=== PATIENT | male | born 1965 | race Caucasian/White ===

== ENCOUNTER 2018-12-17 17:39 | Inpatient (IN) ==
--- NOTE | 2018-12-17 17:51 | Emergency Department Note ---
Disposition Clinical Impression: Renal artery stenosis, Hypertensive emergency Chest pain Qualifiers: Chest pain type: unspecified Qualified Code(s): R07.9 - Chest pain, unspecified Disposition: Admitted As Inpatient Condition: Good Time of Disposition: 21:00 Chest Pain HPI - General Chief Complaint: ED Chest Pain Stated Complaint: CP Time Seen by Provider: 12/17/18 17:49 Vital Signs Reviewed: Yes Nursing Notes Reviewed: Yes - History of Present Illness HPI Narrative: 53-year-old male presents emergency department with concern for acute onset of sharp chest pain that started prior to arrival. States that it does not radiate anywhere. Reports that he has history of stent placement. Reports that he has not been taking his blood pressure medications. His reason for not taking his blood pressure meds is that he has not wanted to eat anything. His mother reports that he has been a little depressed. Patient not actively sought homicidal or suicidal. Patient denies any shortness of breath. Denies any pain in his abdomen. Denies any fevers, chills, cough. Severity scale (1-10): 1 - Related Data Home Medications Medication Instructions Recorded Confirmed Aspirin [Lo-Dose Aspirin EC] 81 mg PO DAILY 09/18/16 06/17/18 Clopidogrel [Plavix] 75 mg PO DAILY 09/18/16 06/17/18 Losartan Potassium [Cozaar] 100 mg PO DAILY 09/18/16 06/17/18 Albuterol Sulfate [Ventolin Hfa] 18 gm IH Q6H PRN 06/17/18 06/17/18 Atorvastatin [Lipitor] 40 mg PO HS 06/17/18 06/17/18 DULoxetine [Cymbalta] 60 mg PO DAILY 06/17/18 06/17/18 Loratadine [Allergy Relief] 10 mg PO DAILY 06/17/18 06/17/18 Multivitamin/Iron/Folic Acid 1 each PO DAILY 06/17/18 06/17/18 [Centrum Complete Multivit Tab] Nitroglycerin [Nitrostat] 0.4 mg SL DAILY PRN 06/17/18 06/17/18 Omeprazole [PriLOSEC] 20 mg PO DAILY 06/17/18 06/17/18 Oxycodone HCl [Oxycontin] 10 mg PO QID 06/17/18 06/17/18 Trazodone HCl 100 mg PO HS 06/17/18 06/17/18 Allergies Allergy/AdvReac Type Severity Reaction Status Date / Time No Known Allergies Allergy Verified 09/18/16 08:14 All systems ED: reviewed and negative except as stated. Review of Systems: As Per HPI Constitutional: Denies: fever, chills Cardiovascular: Reports: chest pain. Denies: palpitations, dyspnea on exertion, syncope Respiratory: Denies: cough, dyspnea Gastrointestinal: Denies: abdominal pain, nausea, vomiting Genitourinary: Denies: urgency, dysuria Musculoskeletal: Denies: back pain Integumentary: Denies: rash Neurological: Denies: weakness, numbness, paresthesias Chest Pain PMH - Past Medical History Medical history: Reports: COPD Surgical history: Reports: angioplasty/stent Psychiatric history: Reports: anxiety - Social History Smoking Status: Current every day smoker Alcohol use: Reports: none Drug use: Reports: none Physical Exam - General Limitations: no limitations General appearance: alert, in no apparent distress - Head Head exam: normocephalic - Eye Eye exam: Present: EOMI - ENT ENT exam: mucous membranes moist - Neck Neck exam: Present: trachea midline - Chest Chest inspection: Present: symmetric chest wall rise - Respiratory Respiratory exam: Present: normal lung sounds bilaterally. Absent: respiratory distress, accessory muscle use - Cardiovascular Cardiovascular exam: Present: regular rate, normal rhythm, normal heart sounds - Abdominal Exam Abdominal exam: Present: soft, Non-Tender. Absent: distention, guarding, rebound, rigidity - Extremities Exam Extremities exam: Present: normal capillary refill - Back Exam Back exam: Present: full ROM - Neurological Exam Neurological exam: Present: alert, oriented X3, CN II-XII intact - Psychiatric Psychiatric exam: Present: normal affect, normal mood - Skin Skin exam: Present: warm, dry, intact, normal color. Absent: rash Course Vital Signs Temperature 98.1 F 12/17/18 17:42 Pulse Rate 111 12/17/18 17:42 Respiratory Rate 18 12/17/18 17:42 Blood Pressure 258/139 12/17/18 17:42 O2 Sat by Pulse Oximetry 98 12/17/18 17:42 Temperature 98.1 F 12/17/18 17:42 Pulse Rate 74 12/17/18 19:44 Respiratory Rate 16 12/17/18 21:07 Blood Pressure 207/120 12/17/18 21:07 O2 Sat by Pulse Oximetry 99 12/17/18 18:08 Oxygen Delivery Oxygen Delivery Room Air Chest Pain - MDM Narrative Medical decision making narrative: 53-year-old male presents emergency Department concern for sharp chest pain. Patient hypertensive initially. Obtained dissection study which did not reveal any acute dissection or aneurysm. Infrarenal abdominal aorta is. 50% stenosis with pain left common iliac arterial stent. Occlusion of left internal iliac artery as well as critical stenosis left renal artery with atrophy of the left kidney is likely chronic in nature. EKG did not reveal any ischemic changes. Troponin negative. Creatinine within normal baseline. Patient received 3 doses of nitroglycerin. This helped out with his chest pain significantly. He was also given 10 mg of IV labetalol. Blood pressure persisted to have systolic greater than 200 after these therapies. Patient most likely has continuous elevated blood pressure as he has not been taking his blood pressure medication. We have started IV nicardipine drip. Patient also given aspirin. Chest pain- free at time of admission. Chest X-Ray 12/17/18 17:52 IMPRESSION: Normal chest radiograph. D/ / Douglas Prater MD / Douglas Prater MD Interpreting Provider: Douglas Prater MD Dissection 12/17/18 18:08 IMPRESSION: No evident aortic dissection or aneurysm. Greater than 50% stenosis of the infrarenal abdominal aorta. Patent left common iliac arterial stent. 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 Critical stenosis proximally in the left renal artery. Severe atrophy of the left kidney. D/ / Reid Temple MD / Reid Temple MD Interpreting Provider: Reid Temple MD - Lab Data Result diagrams: 12/17/18 17:56 12/17/18 17:56 Lab Results 12/17/18 12/17/18 12/17/18 Range/Units 17:56 17:56 17:56 WBC 15.1 H (4.3-11.1) K/mcL RBC 4.31 (4.19-5.50) M/mcL Hgb 13.2 (12.9-16.9) g/dL Hct 39.4 (37.5-50.1) % MCV 91.4 (83.0-100.0) fL MCH 30.6 (28.0-33.3) pg MCHC 33.5 (31.6-35.5) g/dL RDW 13.2 (11.5-14.5) % Plt Count 395 (140-400) K/mcL MPV 9.9 (9.4-12.4) fL Immature Gran % 0.4 (0-4) % Seg Neutrophils % 67.0 % Lymphocytes % 25.5 % Monocytes % 5.9 % Eosinophils % 0.7 % Basophils % 0.5 % Neutrophils # 10.1 H (1.6-8.9) K/mcL Lymphocytes # 3.8 (0.6-4.6) K/mcL Monocytes # 0.9 (0.0-1.3) K/mcL Eosinophils # 0.1 (0.0-0.6) K/mcL Basophils # 0.1 (0.0-0.2) K/mcL Sodium 135 L (136-145) mEq/L Potassium 3.3 L (3.5-5.1) mEq/L Chloride 100 (98-107) mEq/L Carbon Dioxide 25 (23-29) mEq/L BUN 26 H (6-20) mg/dL Creatinine 1.59 H (0.70-1.30) mg/dL Est GFR ( Amer) 55 L (> 60) Est GFR (Non-Af Amer) 46 L (> 60) BUN/Creatinine Ratio 16 (6-26) Glucose 98 (70-105) mg/dL Calculated Osmolality 285 (280-300) Calcium 9.8 (8.6-10.3) mg/dL Troponin I 0.03 (< 0.04) ng/mL B-Natriuretic Peptide 88 (Less than 100) pg/mL - EKG Data EKG attestation: Yes I reviewed and interpreted this EKG. EKG results narrative: 17:49 Heart rate 94 bpm, MD 167 ms, QRS advent 80 ms, QT 378 ms, normal axis. Sinus rhythm with no ischemic ST changes. Heart Score - Score History: Moderately Suspicious EKG: Normal Age: 45-65 Risk Factors: Equal/Greater than 3 risk factor or history of atherosclerotic disease Troponin: Less than normal limit HEART Score Total: 4
[2018-12-17] MEDS ORDERED: Isovue-370 500 ML BOTTLE IVP ONE (18:08)
[2018-12-17] MEDS ORDERED: 0.9 % Sodium Chloride 1,000 ML IVC ONE (18:10)
[2018-12-17] MEDS ORDERED: Nitroglycerin 0.4 MG TAB.SUBL SL ONE (18:29)
[2018-12-17] MEDS: Nitroglycerin 0.4 MG TAB.SUBL SL PRN ×2 (18:36→19:42)
[2018-12-17 18:40] LABS: Basophils # 0.1 K/mcL (0.0-0.2); Basophils % 0.5 %; Eosinophils # 0.1 K/mcL (0.0-0.6); Eosinophils % 0.7 %; Hematocrit 39.4 % (37.5-50.1); Hemoglobin 13.2 g/dL (12.9-16.9); Immature Granulocytes % 0.4 % (0-4); Lymphocytes # 3.8 K/mcL (0.6-4.6); Lymphocytes % 25.5 %; Mean Corpuscular HGB Conc 33.5 g/dL (31.6-35.5); Mean Corpuscular Hemoglobin 30.6 pg (28.0-33.3); Mean Corpuscular Volume 91.4 fL (83.0-100.0); Mean Platelet Volume 9.9 fL (9.4-12.4); Monocytes # 0.9 K/mcL (0.0-1.3); Monocytes % 5.9 %; Neutrophils # 10.1 K/mcL (1.6-8.9); Platelet Count 395 K/mcL (140-400); Red Blood Count 4.31 M/mcL (4.19-5.50); Red Cell Distribution Width 13.2 % (11.5-14.5); White Blood Count 15.1 K/mcL (4.3-11.1)
[2018-12-17 18:57] LABS: Calcium 9.8 mg/dL (8.6-10.3); Potassium 3.3 mEq/L (3.5-5.1)
[2018-12-17 18:59] LABS: Troponin I 0.03 ng/mL (< 0.04)
[2018-12-17] MEDS ORDERED: *HR* Labetalol 20 MG/4 ML SYRINGE IVP ONE (19:59)
[2018-12-17] MEDS ORDERED: Aspirin 81 MG TAB.CHEW PO STA (20:11)
--- NOTE | 2018-12-17 21:12 | Emergency Department Note ---
Disposition Clinical Impression: Renal artery stenosis Disposition: Admitted As Inpatient Condition: Good Time of Disposition: 21:15 General Adult HPI - General Chief complaint: ED Chest Pain Stated complaint: CP Time Seen by Provider: 12/17/18 17:49 Source: patient Limitations: no limitations - History of Present Illness Pain Scale: 3 - Related Data Home Medications Medication Instructions Recorded Confirmed Aspirin [Lo-Dose Aspirin EC] 81 mg PO DAILY 09/18/16 06/17/18 Clopidogrel [Plavix] 75 mg PO DAILY 09/18/16 06/17/18 Losartan Potassium [Cozaar] 100 mg PO DAILY 09/18/16 06/17/18 Albuterol Sulfate [Ventolin Hfa] 18 gm IH Q6H PRN 06/17/18 06/17/18 Atorvastatin [Lipitor] 40 mg PO HS 06/17/18 06/17/18 DULoxetine [Cymbalta] 60 mg PO DAILY 06/17/18 06/17/18 Loratadine [Allergy Relief] 10 mg PO DAILY 06/17/18 06/17/18 Multivitamin/Iron/Folic Acid 1 each PO DAILY 06/17/18 06/17/18 [Centrum Complete Multivit Tab] Nitroglycerin [Nitrostat] 0.4 mg SL DAILY PRN 06/17/18 06/17/18 Omeprazole [PriLOSEC] 20 mg PO DAILY 06/17/18 06/17/18 Oxycodone HCl [Oxycontin] 10 mg PO QID 06/17/18 06/17/18 Trazodone HCl 100 mg PO HS 06/17/18 06/17/18 Allergies Allergy/AdvReac Type Severity Reaction Status Date / Time No Known Allergies Allergy Verified 09/18/16 08:14 Constitutional: Denies: fever, chills Cardiovascular: Reports: chest pain. Denies: palpitations, dyspnea on exertion, syncope Respiratory: Denies: cough, dyspnea Gastrointestinal: Denies: abdominal pain, nausea, vomiting Genitourinary: Denies: urgency, dysuria Musculoskeletal: Denies: back pain Integumentary: Denies: rash Neurological: Denies: weakness, numbness, paresthesias Past Medical History - Past Medical History Medical history: Reports: COPD Surgical history: Reports: angioplasty/stent Psychiatric history: Reports: anxiety, depression - Social History Smoking Status: Current every day smoker Smokeless Tobacco Status: No Alcohol use: Reports: none Drug use: Reports: none Physical Exam - General Limitations: no limitations General appearance: alert, in no apparent distress Course Vital Signs Temperature 98.1 F 12/17/18 17:42 Pulse Rate 111 12/17/18 17:42 Respiratory Rate 18 12/17/18 17:42 Blood Pressure 258/139 12/17/18 17:42 O2 Sat by Pulse Oximetry 98 12/17/18 17:42 Temperature 98.1 F 12/17/18 17:42 Pulse Rate 74 12/17/18 19:44 Respiratory Rate 16 12/17/18 21:07 Blood Pressure 207/120 12/17/18 21:07 O2 Sat by Pulse Oximetry 99 12/17/18 18:08 Oxygen Delivery Oxygen Delivery Room Air Medical Decision Making - Lab Data Result diagrams: 12/17/18 17:56 12/17/18 17:56 Lab Results 12/17/18 12/17/18 12/17/18 Range/Units 17:56 17:56 17:56 WBC 15.1 H (4.3-11.1) K/mcL RBC 4.31 (4.19-5.50) M/mcL Hgb 13.2 (12.9-16.9) g/dL Hct 39.4 (37.5-50.1) % MCV 91.4 (83.0-100.0) fL MCH 30.6 (28.0-33.3) pg MCHC 33.5 (31.6-35.5) g/dL RDW 13.2 (11.5-14.5) % Plt Count 395 (140-400) K/mcL MPV 9.9 (9.4-12.4) fL Immature Gran % 0.4 (0-4) % Seg Neutrophils % 67.0 % Lymphocytes % 25.5 % Monocytes % 5.9 % Eosinophils % 0.7 % Basophils % 0.5 % Neutrophils # 10.1 H (1.6-8.9) K/mcL Lymphocytes # 3.8 (0.6-4.6) K/mcL Monocytes # 0.9 (0.0-1.3) K/mcL Eosinophils # 0.1 (0.0-0.6) K/mcL Basophils # 0.1 (0.0-0.2) K/mcL Sodium 135 L (136-145) mEq/L Potassium 3.3 L (3.5-5.1) mEq/L Chloride 100 (98-107) mEq/L Carbon Dioxide 25 (23-29) mEq/L BUN 26 H (6-20) mg/dL Creatinine 1.59 H (0.70-1.30) mg/dL Est GFR ( Amer) 55 L (> 60) Est GFR (Non-Af Amer) 46 L (> 60) BUN/Creatinine Ratio 16 (6-26) Glucose 98 (70-105) mg/dL Calculated Osmolality 285 (280-300) Calcium 9.8 (8.6-10.3) mg/dL Troponin I 0.03 (< 0.04) ng/mL B-Natriuretic Peptide 88 (Less than 100) pg/mL Attestation Statement - Attestation Attestation: I reviewed the residents documentation and agree with the residents assessment and plan of care. I have personally had face to face time with the patient. 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 We will strat on nifepdeine and admit to ICU. AFter disucssing with Dr. Wolf who is a hospitalist here but has speciality training in interventional nephrology she would lalso recommend lasix therapy. WE will also formally consult nephrology service in addition to the professional courtesy consult per Dr. Wolf.
[2018-12-17] MEDS: niCARdipine 20 MG in 0.9 % Sodium Chloride 192 ML IVC SCH (21:53)
--- NOTE | 2018-12-17 22:02 | Internal Med History&Physical ---
<Jose E Yañez - Last Filed: 12/18/18 00:28> Date of Encounter: 12/18/18 Time of Encounter: 21:57 Internal Medicine - H&P: HPI Chief complaint: chest pain Admitted From: Emergency Dept Plans for Post Hospital Care: Home History of present illness: Mr. Lopez is a 53 year old male with history of psychiatric complaints, CAD, PAD, hypertension, right renal artery stenosis and left renal atrophy who pr esents to the hospital for severe chest pain and hypertension. He says that over the past month he has been having issues with chest pains and confusion which have been getting progressively worse. He says the chest pains are in the center of his chest and nonradiating. He does say that his pain is worsened by activity. It is relieved by rest. Overall they have been manageable, and he felt that maybe they were heartburn so he has been taking extra Prilosec, however they do not seem to be getting any better. Today they seem to be worse than they have been previously and he was no longer able to stand it. He says when he arrived hospital the pain was 10 over 10 in intensity. The pain was stabbing in nature and was associated with shortness of breath. He did not have any diaphoresis or palpitations associated with this. He also has no edema associated with this. He says that sometimes this pain is severe enough to wake him from sleep. He does have severe anxiety and depression that is associated with this. He also says that he has some confusion which is baseline, and is as sociated with some of psychiatric concerns. The patient does have a history of renovascular disease which is managed by nephrology, and he says that his blood pressure is been well controlled up until recently, however he has had episodes of high spikes in pressure. He says that when he arrived at the ED and was given medicine, his pain resolved relatively quickly. Significantly, while he did not mention it to me, the patient did tell his nurse that he has not been taking his medications for fear that they may have interactions. In the emergency department the patient had labs demonstrated WBC of 15.1, sodium 135, potassium 3.3, creatinine 1.59 which is at baseline, troponin 0.03. He had a chest x-ray which was relatively normal. A CT dissection study from chest to pelvis demonstrated greater than 50% stenosis of the infrarenal abdominal aorta have pain left common iliac artery stent. There is occlusion of the left internal iliac artery and a critical stenosis proximally in the left renal artery with severe atrophy of the left kidney. The patient originally received labetalol and was subsequently started on a Cardene drip which did drop the patient's blood pressure significantly. Nephrology was consulted in the ED. He will be admitted to the ICU as a 2N overflow patient for further workup and management of hypertensive urgency. Family history: Mother has CAD and diabetes. Past Med Surg Social Fam HX - Past Medical History Medical history: COPD Additional medical history: RDS in LLE. ulcers Psychiatric history: anxiety, depression - Past Surgical History Surgical History: angioplasty/stent Additional surgical history: LLE STENT - Social History Smoking Status: Current every day smoker Smokeless Tobacco Status: No Alcohol use: none Drug use: none Internal Medicine - H&P: Meds Aspirin [Lo-Dose Aspirin EC] 81 mg PO DAILY 09/18/16 [History] Clopidogrel [Plavix] 75 mg PO DAILY 09/18/16 [History] Losartan Potassium [Cozaar] 100 mg PO DAILY 09/18/16 [History] Albuterol Sulfate [Ventolin Hfa] 18 gm IH Q6H PRN 06/17/18 [History] Atorvastatin [Lipitor] 40 mg PO HS 06/17/18 [History] DULoxetine [Cymbalta] 60 mg PO DAILY 06/17/18 [History] Loratadine [Allergy Relief] 10 mg PO DAILY 06/17/18 [History] Multivitamin/Iron/Folic Acid [Centrum Complete Multivit Tab] 1 each PO DAILY 06/17/18 [History] Nitroglycerin [Nitrostat] 0.4 mg SL DAILY PRN 06/17/18 [History] Omeprazole [PriLOSEC] 20 mg PO DAILY 06/17/18 [History] Trazodone HCl 100 mg PO HS 06/17/18 [History] Oxycodone HCl [Roxybond] 10 mg PO Q6H PRN 12/17/18 [History] Allergy/AdvReac Type Severity Reaction Status Date / Time No Known Allergies Allergy Verified 09/18/16 08:14 All Systems PM: A 10-system review of systems was performed and is negative for pertinent findings except as documented above in the HPI. Review of systems: Constitutional: Denies fevers, chills, weight loss, generalized fatigue Head/Neck: Denies PATRICK, neck stiffness EENT: Denies vision changes/blurriness, rhinorrhea, congestion, sore throat CVS: Admits to chest pains, dyspnea on exertion. Pulm: Denies SOB, cough, sputum, hemoptysis, wheezing GI: Denies vomiting, diarrhea, constipation, melena, hematemasis. Admits to abdominal pain and nausea : Denies dysuria, increased frequency, urgency, hematuria Heme: Denies ease of bleeding or bruising MSK: Denies joint pain, limited ROM Skin: Denies rashes, ulcers, color changes Neuro: Denies PATRICK, paresthesias, focal deficits, ataxia - Constitutional Vitals: Temp Pulse Resp BP Pulse Ox 98.9 F 82 20 164/134 100 12/17/18 21:31 12/17/18 21:31 12/17/18 21:31 12/17/18 21:31 12/17/18 21:31 Exam: Gen: Vitals noted. No acute distress. Eyes: anicteric sclerae, moist conjunctivae; no lid-lag; Pupils equal and reactive to light HENT: Atraumatic; oropharynx clear with moist mucous membranes and no mucosal ulcerations; normal hard and soft palate Neck: Trachea midline; supple, no thyromegaly or lymphadenopathy Cardiac: RRR, no murmur, +S1/S2 Pulmonary: CTA bilaterally, no wheezes, rales or rhonchi, equal chest expansion Abdomen: soft, Tender with palpation, voluntary guarding present. No masses or hepatosplenomegaly MSK: ROM intact, no joint swelling noted Extremities: no BLE edema, tenderness in left lower extremity circumferentially, no cyanosis or clubbing Skin: Normal temperature, turgor and texture; no rash, ulcers or subcutaneous nodules Neuro: moves all extremities, no focal deficits. Psych: Anxious appearing. Speech pattern is broken and not always cold directed. A&Ox3 Internal Med - H&P Results - Labs CBC & Chem 7: 12/17/18 17:56 12/17/18 17:56 Labs: Short CBC 12/17/18 Range/Units 17:56 WBC 15.1 H (4.3-11.1) K/mcL Hgb 13.2 (12.9-16.9) g/dL Hct 39.4 (37.5-50.1) % Plt Count 395 (140-400) K/mcL Neutrophils # 10.1 H (1.6-8.9) K/mcL BMP 12/17/18 17:56 Sodium 135 L Potassium 3.3 L Chloride 100 Carbon Dioxide 25 BUN 26 H Creatinine 1.59 H Glucose 98 Calcium 9.8 Cardiac Enzymes 12/17/18 Range/Units 17:56 Troponin I 0.03 (< 0.04) ng/mL - Impressions ITS Impressions Chest X-Ray 12/17/18 17:52 IMPRESSION: Normal chest radiograph. D/ / Douglas Prater MD / Douglas Prater MD Interpreting Provider: Douglas Prater MD Dissection 12/17/18 18:08 IMPRESSION: No evident aortic dissection or aneurysm. Greater than 50% stenosis of the infrarenal abdominal aorta. Patent left common iliac arterial stent. 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 Critical stenosis proximally in the left renal artery. Severe atrophy of the left kidney. D/ / Reid Temple MD / Reid Temple MD Interpreting Provider: Reid Temple MD - Assessment and Plan (1) Hypertensive emergency Current Visit: Yes Status: Acute Assessment and plan: Hypertensive Emergency, BP 258 on arrival Patient does present with chest pain and evidence of confusion and headache Likely secondary to severe renovascular disease. Unclear is patient is compliant with home meds Received Labetalol IV in the ED and was placed on nicardipine drip We will continue the nicardipine drip at this time Goal BP 180/110 in first 24 hours (2) Confusion Current Visit: Yes Status: Acute Assessment and plan: Acute encephalopathy, suspect hypertensive encephalopathy vs RPLS The patient says that this has been getting progressively worse over the past month He does, apparently, have psychiatric history, however this is unlikely the source Also reports improvement since BP has started to come down some We will check a non-contrast CT of the head Will likely need MRI in the morning Consider neurology consult if there is no imrpovement (3) Chest pain Current Visit: Yes Status: Acute Assessment and plan: Chest pain, suspected secondary to HTN emergency Patient does have history of CAD and has PAD Will trend trop, continuous cardiac monitoring Repeat EKG in am Will get echo Qualifiers: Chest pain type: precordial pain Qualified Code(s): R07.2 - Precordial pain (4) Renal artery stenosis Current Visit: Yes Status: Acute Assessment and plan: Right renal artery stenosis CT dissection study demonstrates greater than 50% stenosis of the infrarenal abdominal aorta, patent left common iliac arterial stent, occlusion of the left internal iliac artery and critical stenosis proximally of the left renal artery. The patient does see nephrology in the outpatient setting Nephrology has been consulted from the emergency department (5) Peripheral arterial disease Current Visit: Yes Status: Acute Assessment and plan: Severe peripheral arterial disease requiring angioplasty in the past Patient does appear to be on aspirin and Plavix We will continue home medications when confirmed and BP under better control (6) CAD (coronary artery disease) Current Visit: Yes Status: Acute Assessment and plan: History of CAD s/p stent Currently no evidence of ischemia, trop negative Will continue cardiac monitoring Continue home meds when BP better controlled Qualifiers: Coronary Disease-Associated Artery/Lesion type: [place] artery [place] vs. transplanted heart: [place] heart Associated angina: with stable angina Qualified Code(s): I25.118 - Atherosclerotic heart disease of [place] coronary artery with other forms of angina pectoris (7) Renal atrophy, left Current Visit: Yes Status: Chronic Assessment and plan: chronic (8) CKD (chronic kidney disease) Current Visit: Yes Status: Chronic Assessment and plan: Chronic, appears stable Qualifiers: Chronic kidney disease stage: stage 3 (moderate) Qualified Code(s): N18.3 - Chronic kidney disease, stage 3 (moderate) (9) Depression with anxiety Current Visit: Yes Status: Acute Assessment and plan: Patient has depression with anxiety Apparently has been holding his meds at home He denies suicidal or homicidal ideations Will confirm meds, plan to restart in the morning if possible Social work consult - Time Spent With Patient Total time spent is greater than 50% in coordination of care (as documented) at patient's floor/unit and/or counseling patient: <Mil Choi - Last Filed: 12/18/18 02:29> Date of Encounter: 12/18/18 Time of Encounter: 01:05 - Constitutional Constitutional: no chills, no fever(s) - EENT Eyes: blurry vision, no diplopia Ears: no ear pain, no tinnitus Nose, mouth and throat: no nasal congestion, no sinus pressure, no sore throat - Cardiovascular Cardiovascular ROS IM: dyspnea on exertion, no chest pain, no dyspnea, no orthopnea, no paroxysmal nocturnal dyspnea - Respiratory Respiratory: no cough, no chest congestion, no excessive phlegm production - Gastrointestinal Gastrointestinal: no abdominal pain, no diarrhea, no hematemesis, no hematochezia, no melena, no vomiting - Genitourinary Genitourinary ROS male: no dysuria, no flank pain - Musculoskeletal Musculoskeletal ROS IM: no arthralgias, no back pain - Integumentary Integumentary IM: no rash, no jaundice - Neurological Neurological ROS: confusion, headache(s), no convulsions, no disequilibrium, no dizziness, no focal weakness, no frequent falls - Psychiatric Psychiatric: no anxiety, no depression - Endocrine Endocrine IM: no polyphagia, no polyuria - Allergic/Immunologic Allergic/Immunologic: no GI upset with certain foods - Constitutional Vitals: Temp Pulse Resp BP Pulse Ox 98.3 F 65 15 167/89 99 12/18/18 00:44 12/18/18 02:00 12/18/18 02:00 12/18/18 02:00 12/18/18 02:00 General appearance: Present: cooperative, A&O X 3, pleasant, answers questions appropriately - Head Head exam: Present: atraumatic, normal inspection - Eye Eye exam: Present: EOMI, PERRL. Absent: scleral icterus Pupils: Present: normal accommodation - ENT ENT exam: Present: mucous membranes dry, normal exam, normal oropharynx - Neck Neck exam general surgery: Present: full ROM, supple, trachea midline. Absent: tenderness, nuchal rigidity, thyromegaly - Respiratory Respiratory exam: Present: CTAB. Absent: rales, rhonchi, wheezes - Cardiovascular Cardiovascular exam: Present: RRR, +S1, +S2. Absent: diastolic murmur, systolic murmur - GI/Abdominal GI/Abdominal exam: Present: normal bowel sounds. Absent: guarding, hepatomegaly, mass, rebound, soft, splenomegaly, tenderness - Extremities Exam Extremities exam: Present: normal capillary refill, warm, radial pulses palpable and symmetrical. Absent: calf tenderness, pedal edema, tenderness - Back Exam Back exam: Absent: CVA tenderness (L), CVA tenderness (R) - Neurological Exam Neurological exam: Present: alert, CN II-XII intact, oriented X3, no focal deficits, strengths equal and symetr throughout. Absent: motor sensory deficit - Psychiatric Psychiatric exam: Present: normal affect, normal mood - Skin Skin exam: Present: dry, intact, warm Internal Med - H&P Results - Labs CBC & Chem 7: 12/17/18 17:56 12/17/18 17:56 Labs: Short CBC 12/17/18 Range/Units 17:56 WBC 15.1 H (4.3-11.1) K/mcL Hgb 13.2 (12.9-16.9) g/dL Hct 39.4 (37.5-50.1) % Plt Count 395 (140-400) K/mcL Neutrophils # 10.1 H (1.6-8.9) K/mcL BMP 12/17/18 17:56 Sodium 135 L Potassium 3.3 L Chloride 100 Carbon Dioxide 25 BUN 26 H Creatinine 1.59 H Glucose 98 Calcium 9.8 Cardiac Enzymes 12/17/18 12/17/18 Range/Units 17:56 22:45 Troponin I 0.03 0.03 (< 0.04) ng/mL - Impressions ITS Impressions Chest X-Ray 12/17/18 17:52 IMPRESSION: Normal chest radiograph. D/ / Douglas Prater MD / Douglas Prater MD Interpreting Provider: Douglas Prater MD Dissection 12/17/18 18:08 IMPRESSION: No evident aortic dissection or aneurysm. Greater than 50% stenosis of the infrarenal abdominal aorta. Patent left common iliac arterial stent. 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 Critical stenosis proximally in the left renal artery. Severe atrophy of the left kidney. D/ / Reid Temple MD / Reid Temple MD Interpreting Provider: Reid Temple MD Head CT 12/17/18 23:15 IMPRESSION: No acute intracranial abnormality. D/ / Reid Temple MD / Reid Temple MD Interpreting Provider: Reid Temple MD - Time Spent With Patient Total time spent is greater than 50% in coordination of care (as documented) at patient's floor/unit and/or counseling patient: - Attending Attestation I discussed the patient UNALAKLEET, past medical history, review of systems, lab data, imaging data, and exam findings with . I then saw and evaluated patient independently as well. Patient reports having had headache, confusion, difficulty with concentration and clearing his mind, chest pain, dyspnea on exertion, and generalized malaise. He feels much better with blood pressure control now. He has had no nausea or vomiting. He has been noncompliant with his medication and has not been monitoring his blood pressure regularly before today. He does follow with nephrology. He is remaining on low-dose nicardipine drip at the present time with fluctuations in blood pressure. We will try to wean off his nicardipine drip by morning and can hopefully resume his oral home medications within the next day or so. We will consult nephrology to assist in better managing his blood pressure and follow-up on his chronic kidney disease. Other than my comments above and documented exam findings, I agree with Dr. Diana shaffer's assessment and plan.
[2018-12-17] MEDS ORDERED: Naloxone 0.4 MG/ML INJ IVP PRN (22:26)
[2018-12-17] MEDS ORDERED: Ondansetron 4 MG/2 ML VIAL IVP PRN (22:26)
[2018-12-17] MEDS ORDERED: *HR* OxyCODONE Immed Rel 5 MG TABLET PO PRN (22:36)
[2018-12-18] MEDS ORDERED: Gadolinium Contrast Agent (WT Based) IV PRN (00:19)
[2018-12-18] MEDS: niCARdipine 20 MG in 0.9 % Sodium Chloride 192 ML IVC SCH ×5 (00:37→21:51)
[2018-12-18 01:44] LABS: Amphetamine Screen,Urine Negative ng/mL (Cutoff=1000); Barbiturate Screen,Urine Negative ng/mL (Cutoff=200); Benzodiazepines Screen,Urine Negative ng/mL (Cutoff=200); Cannabinoid Screen,Urine Negative ng/mL (Cutoff = 50); Cocaine Screen,Urine Negative ng/mL (Cutoff= 300); Opiate Screen,Urine Negative ng/mL (Cutoff=300); Phencyclidine Screen,Urine Negative ng/mL (Cutoff=25)
[2018-12-18 05:48] LABS: Basophils # 0.1 K/mcL (0.0-0.2); Basophils % 0.6 %; Eosinophils # 0.2 K/mcL (0.0-0.6); Eosinophils % 1.8 %; Hematocrit 36.8 % (37.5-50.1); Hemoglobin 12.5 g/dL (12.9-16.9); Immature Granulocytes % 0.2 % (0-4); Lymphocytes # 3.2 K/mcL (0.6-4.6); Lymphocytes % 32.9 %; Mean Corpuscular Hemoglobin 31.4 pg (28.0-33.3); Mean Corpuscular Volume 92.5 fL (83.0-100.0); Mean Platelet Volume 9.9 fL (9.4-12.4); Monocytes # 0.7 K/mcL (0.0-1.3); Monocytes % 6.6 %; Neutrophils # 5.7 K/mcL (1.6-8.9); Platelet Count 341 K/mcL (140-400); Red Blood Count 3.98 M/mcL (4.19-5.50); Red Cell Distribution Width 13.2 % (11.5-14.5); Segmented Neutrophils % 57.9 %; White Blood Count 9.8 K/mcL (4.3-11.1)
[2018-12-18 05:55] LABS: Prothrombin Time 11.3 Seconds (9.4-12.1)
[2018-12-18 06:07] LABS: Alanine Aminotransferase 24 Units/L (7-52); Albumin/Globulin Ratio 1.4 (1.1-2.2); Alkaline Phosphatase 87 Units/L (34-104); Aspartate Amino Transferase 18 Units/L (13-39); BUN/Creatinine Ratio 17 (6-26); Bilirubin,Total 0.3 mg/dL (0.3-1.0); Blood Urea Nitrogen 21 mg/dL (6-20); Calcium 9.4 mg/dL (8.6-10.3); Carbon Dioxide 28 mEq/L (23-29); Chloride 99 mEq/L (98-107); Cholesterol 166 mg/dL (< 200); Globulin 2.8 g/dL (2.4-3.5); Glucose 150 mg/dL (70-105); HDL Cholesterol 41 mg/dL (40-59); LDL Cholesterol,Calculated 61 mg/dL (0-99); Magnesium 2.2 mg/dL (1.6-2.6); Osmolality,Calculated 290 (280-300); Phosphorous 2.6 mg/dL (2.7-4.5); Potassium 3.3 mEq/L (3.5-5.1); Sodium 137 mEq/L (136-145); Total Protein 6.8 g/dL (6.4-8.9); Triglycerides 318 mg/dL (< 150); eGFR For African Americans > 60 (> 60); eGFR For Non-African Americans 60 (> 60)
[2018-12-18] MEDS: Aspirin Enteric Coated 81 MG Tablet PO SCH (08:44)
[2018-12-18] MEDS ORDERED: Aspirin Enteric Coated 81 MG Tablet PO SCH (09:00)
[2018-12-18] MEDS: Nicotine 14 MG PATCH.TD24 TD SCH (10:08)
--- NOTE | 2018-12-18 11:57 | Nephrology Consult Note ---
Date of Encounter: 12/18/18 Time of Encounter: 12:00 History of Present Illness - Reason for Consult Consult date: 12/18/18 Chronic Kidney Disease, accelerated hypertension - History of Present Illness 53 y o male with PMH of HTN, CAD Past Med Surg Social Fam HX - Past Medical History Medical history: COPD Additional medical history: RDS in LLE. ulcers Psychiatric history: anxiety, depression - Past Surgical History Surgical History: angioplasty/stent Additional surgical history: LLE STENT - Social History Smoking Status: Current every day smoker Smokeless Tobacco Status: No Alcohol use: none Drug use: none Medications and Allergies Aspirin [Lo-Dose Aspirin EC] 81 mg PO DAILY 09/18/16 [History] Clopidogrel [Plavix] 75 mg PO DAILY 09/18/16 [History] Losartan Potassium [Cozaar] 100 mg PO DAILY 09/18/16 [History] Albuterol Sulfate [Ventolin Hfa] 18 gm IH Q6H PRN 06/17/18 [History] Atorvastatin [Lipitor] 40 mg PO HS 06/17/18 [History] DULoxetine [Cymbalta] 60 mg PO DAILY 06/17/18 [History] Loratadine [Allergy Relief] 10 mg PO DAILY 06/17/18 [History] Multivitamin/Iron/Folic Acid [Centrum Complete Multivit Tab] 1 each PO DAILY 06/17/18 [History] Nitroglycerin [Nitrostat] 0.4 mg SL DAILY PRN 06/17/18 [History] Omeprazole [PriLOSEC] 20 mg PO DAILY 06/17/18 [History] Trazodone HCl 100 mg PO HS 06/17/18 [History] Oxycodone HCl [Roxybond] 10 mg PO Q6H PRN 12/17/18 [History] Allergy/AdvReac Type Severity Reaction Status Date / Time No Known Allergies Allergy Verified 09/18/16 08:14 Exam - Vital Signs Vital signs: Initial Vital Signs Temp Pulse Resp BP Pulse Ox 98.1 F 111 18 258/139 98 12/17/18 17:42 12/17/18 17:42 12/17/18 17:42 12/17/18 17:42 12/17/18 17:42 Vital Signs - Last 8 Hours Temp Pulse Resp BP Pulse Ox 12/18/18 10:00 62 18 148/91 99 12/18/18 08:45 96.7 F L 12/18/18 08:33 62 12/18/18 08:00 59 16 178/93 99 12/18/18 06:05 65 16 161/95 98 12/18/18 05:03 64 15 161/77 98 12/18/18 04:42 97.8 F 12/18/18 04:35 75 16 138/88 98 12/18/18 04:00 69 13 211/111 99 Intake and Output 12/17/18 12/18/18 12/18/18 23:59 07:59 15:59 Intake Total 1000 / 1000 500 / 500 Output Total 400 / 400 975 / 2250 1275 / 2250 Balance 600 / 600 -475 / -1750 -1275 / -1750 Intake: IV Fluids 1000 / 1000 200 / 200 0.9 % Sodium Chloride 1,000 ML 1000 / 1000 @ Wide Open IVC .Q0M ONE Rx#: [id number] Cardene 20 MG In 0.9 % Sodium 200 / 200 Chloride 192 ML @ 5 MG/HR 50 mls/hr IVC .Q4H MANJEET Rx#: [id number] Oral 0 / 0 100 / 100 Tube Feeding 200 / 200 Output: Urine 400 / 400 975 / 2250 1275 / 2250 Other: Weight 75.8 kg 75.8 kg Blood Glucose* 101 122 Patient Weight 12/18/18 23:59 Weight 75.8 kg Results - Lab Results 12/18/18 05:13 12/18/18 05:13 Most recent lab results 12/18/18 05:13 Calcium 9.4 Phosphorus 2.6 L Magnesium 2.2 Consult Discharge Plan - Plan Referrals: Elin Mustafa, REFRIGERATION OPERATOR [Primary Care Provider] -
[2018-12-18] MEDS ORDERED: amLODIPine 5 MG TABLET PO SCH (13:45)
--- NOTE | 2018-12-18 14:16 | Internal Med Progress Note ---
Hospitalist Progress Note - Encounter Date of Encounter: 12/18/18 Time of Encounter: 14:14 - Subjective Interval History: I have seen and evaluated the patient at bedside. patient reports the chest discomfort has stopped. denies shortness of breath, nausea or vomiting. denies headache or focal weakness. - Exam Vitals: Temp Pulse Resp BP Pulse Ox 98.4 F 89 18 181/120 98 12/18/18 12:21 12/18/18 12:21 12/18/18 12:21 12/18/18 12:21 12/18/18 12:21 Exam: Vitals: Reviewed General: Alert and oriented x4. In no distress Cardiovascular: RRR, normal S1 & S2, no rubs, murmurs or gallops. Lungs: CTA b/l, no wheezes or crackles. Abdomen: Soft, non-tender, no rigidity. Extremities: No deformity, no edema or tenderness, no joint swelling or clubbing. Neurological: Normal cognition and motor skills. Rest of the physical exam is non contributory - Assessment and Plan (1) Hypertensive emergency Current Visit: Yes Status: Acute Assessment and Plan: patient reported not being compliant with his anti-hypertensive medications for longer than 2 weeks. Plan will titrate off nicardipine drip re-started on losartan 100mg/PO daily. started on amlodipine 10mg/PO daily will adjust medications as needed to wean patient off nicardipine drip. (2) CAD (coronary artery disease) Current Visit: Yes Status: Chronic Assessment and Plan: patient on dual antiplatelets (3) Depression with anxiety Current Visit: Yes Status: Chronic Assessment and Plan: home dose of trazadone and duloxetine resumed. (4) Peripheral arterial disease Current Visit: Yes Status: Chronic Assessment and Plan: patient s/p AORTOGRAPHY, ABDOMINAL S&I . AORTOGRAPHY EXT Bilat S&I . FEM/POPL REVAS W/TLA. ILIAC REVASC (5) Renal artery stenosis Current Visit: Yes Status: Chronic Assessment and Plan: patient on an ARB. but reported not being compliant with his medications. (6) Renal atrophy, left Current Visit: Yes Status: Chronic (7) Nonadherence to medication Current Visit: Yes Status: Chronic Assessment and Plan: patient educated about the importance of being compliant with his medications. patient verbalized understanding DVT Prophylaxis: started on heparin subq - Summary of Assessment and Plan Summary of Assessment and Plan: patient to remain in the hospital due to uncontrolled HTN on a nicardipine drip - Time Spent with Patient Total time spent is greater than 50% in coordination of care (as documented) at patient's floor/unit and/or counseling patient: Greater than 35 minutes (40) Plan of Care Discussed with: patient (his family at bedside and the nurse.) Internal Medicine: Result - Labs CBC & Chem 7: 12/18/18 05:13 12/18/18 05:13 Labs: Short CBC 12/17/18 12/18/18 Range/Units 17:56 05:13 WBC 15.1 H 9.8 (4.3-11.1) K/mcL Hgb 13.2 12.5 L (12.9-16.9) g/dL Hct 39.4 36.8 L (37.5-50.1) % Plt Count 395 341 (140-400) K/mcL Neutrophils # 10.1 H 5.7 (1.6-8.9) K/mcL BMP 12/17/18 12/18/18 17:56 05:13 Sodium 135 L 137 Potassium 3.3 L 3.3 L Chloride 100 99 Carbon Dioxide 25 28 BUN 26 H 21 H Creatinine 1.59 H 1.26 Glucose 98 150 H Calcium 9.8 9.4 Cardiac Enzymes 12/17/18 12/17/18 12/18/18 Range/Units 17:56 22:45 05:13 Troponin I 0.03 0.03 0.03 (< 0.04) ng/mL Liver Function 12/18/18 Range/Units 05:13 Total Bilirubin 0.3 (0.3-1.0) mg/dL AST 18 (13-39) Units/L ALT 24 (7-52) Units/L Alkaline Phosphatase 87 (34-104) Units/L Albumin 4.0 (3.5-5.7) g/dL - ABG Interpretation ABG results: PT/INR, D-dimer PT 11.3 Seconds (9.4-12.1) 12/18/18 05:13 - Impressions Impressions Chest X-Ray 12/17/18 17:52 IMPRESSION: Normal chest radiograph. D/ / Douglas Prater MD / Douglas Prater MD Interpreting Provider: Douglas Prater MD Dissection 12/17/18 18:08 IMPRESSION: No evident aortic dissection or aneurysm. Greater than 50% stenosis of the infrarenal abdominal aorta. Patent left common iliac arterial stent. 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 Critical stenosis proximally in the left renal artery. Severe atrophy of the left kidney. D/ / Reid Temple MD / Reid Temple MD Interpreting Provider: Reid Temple MD Head CT 12/17/18 23:15 IMPRESSION: No acute intracranial abnormality. D/ / Reid Temple MD / Reid Temple MD Interpreting Provider: Reid Temple MD Echocardiogram 12/18/18 00:26 Impressions: LVEF 60-65%. Mild left ventricular diastolic dysfunction. Normal right ventricular structure and function. Mild mitral regurgitation. Mild tricuspid regurgitation. No pulmonary hypertension. Left Ventricular Wall Motion: Rest Echo Findings All wall segments showed normal motion. Findings: Study Quality * Technically adequate exam. ECG Findings * Sinus bradycardia. Left Ventricle * LVEF 60-65%. * Normal LV chamber size, wall thickness and function. * Mild left ventricular diastolic dysfunction. Right Ventricle * Normal right ventricular structure and function. Left Atrium * Mildly dilated left atrium. Right Atrium * Normal right atrial size. Aortic Valve * No aortic stenosis. * Trileaflet aortic valve. * Trace aortic regurgitation. Mitral Valve * Normal mitral valve structure. * No mitral stenosis. * Mild mitral regurgitation. Tricuspid Valve * Normal tricuspid valve structure. * Mild tricuspid regurgitation. * Estimated RA pressure is 8 mmHg. * Estimated RVSP is 24 mmHg. * No pulmonary hypertension. Pulmonic Valve * Pulmonic valve is not well visualized. * No pulmonic stenosis. * No pulmonic regurgitation. Pulmonary Artery * Pulmonary artery not well visualized. Aorta * Normally sized aortic root. Pericardium * There is no pericardial effusion present. Interatrial Septum * No evidence of PFO by color Doppler. IVC * The IVC is not dilated. * < 50% respiratory change. Consult Discharge Plan - Plan Referrals: Elin Mustafa, [employer] MACHINE OPERATOR [Primary Care Provider] - (2) CAD (coronary artery disease) Qualifiers: Coronary Disease-Associated Artery/Lesion type: [place] artery [place] vs. transplanted heart: [place] heart Associated angina: with stable angina Qualified Code(s): I25.118 - Atherosclerotic heart disease of [place] coronary artery with other forms of angina pectoris
[2018-12-18] MEDS: *HR* Heparin 5,000 UNIT/ML VIAL SQ SCH (17:27)
[2018-12-18] MEDS ORDERED: traZODone 50 MG TABLET PO SCH (21:00)
[2018-12-19] MEDS: *HR* Heparin 5,000 UNIT/ML VIAL SQ SCH (05:31)
[2018-12-19] MEDS: niCARdipine 20 MG in 0.9 % Sodium Chloride 192 ML IVC SCH ×3 (06:57→15:10)
[2018-12-19] MEDS: Aspirin Enteric Coated 81 MG Tablet PO SCH (08:21)
[2018-12-19] MEDS: Nicotine 14 MG PATCH.TD24 TD SCH (08:22)
[2018-12-19 08:31] LABS: Estimated Average Glucose 126 mg/dl
[2018-12-19] MEDS ORDERED: NIFEdipine XL (24 HR) 60 MG TAB.ER.24 PO SCH (09:00)
[2018-12-19] MEDS ORDERED: Metoprolol XL (24 HR) Succ 25 MG TAB.ER.24H PO SCH (09:00)
[2018-12-19] MEDS ORDERED: hydrALAZINE 25 MG TABLET PO SCH (12:00)
[2018-12-19 12:35] VITALS: BP 133/89
--- NOTE | 2018-12-19 13:01 | Electrocardiograph Report ---
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
--- NOTE | 2018-12-19 14:25 | Discharge Summary ---
Date of Encounter: 12/19/18 Time of Encounter: 14:20 - Discharge Diagnosis (1) Hypertensive emergency Priority: Primary Status: Resolved (2) CAD (coronary artery disease) Priority: Secondary Status: Chronic Qualifiers: Coronary Disease-Associated Artery/Lesion type: [place] artery [place] vs. transplanted heart: [place] heart Associated angina: with stable angina Qualified Code(s): I25.118 - Atherosclerotic heart disease of [place] coronary artery with other forms of angina pectoris (3) Depression with anxiety Priority: Secondary Status: Chronic (4) Peripheral arterial disease Priority: Secondary Status: Chronic (5) Renal artery stenosis Priority: Secondary Status: Chronic (6) Renal atrophy, left Priority: Secondary Status: Chronic (7) Nonadherence to medication Priority: Secondary Status: Chronic Hospital course: Mr. Lopez is a 53 year old male history of psychiatric complaints, CAD, PAD, hypertension, right renal artery stenosis and left renal atrophy who presents to the hospital for severe chest pain and hypertension. Patient reported no taking his anti-hypertensive medications for about 2 weeks. Patient was admitted to the hospital due to hypertensive emergency SBP >250 on presentation. Patient was started on a nicardipine drip, and his home medications were resumed. BP has been well controlled over hte past 24 hours. Head MRI: unremarkable. Patient is clinically stable to be discharged home. Patient educated about risks of not being compliant to with his medication, he verbalized understanding. - Time Spent with Patient Total time spent providing and/or coordinating discharge services: Time spent: Greater than 30 minutes (35) - Discharge Medications Prescriptions: New hydrALAZINE [HydrALAZINE] 25 mg PO Q8HR 30 Days #90 tablet Nicotine Patch [Nicoderm] 14 mg TD DAILY 30 Days #30 patch.td24 Continued Clopidogrel [Plavix] 75 mg PO DAILY Aspirin [Lo-Dose Aspirin EC] 81 mg PO DAILY Omeprazole [PriLOSEC] 20 mg PO DAILY Multivitamin/Iron/Folic Acid [Centrum Complete Multivit Tab] 1 each PO DAILY Loratadine [Allergy Relief] 10 mg PO DAILY Nitroglycerin [Nitrostat] 0.4 mg SL DAILY PRN PRN Reason: Chest Pain Albuterol Sulfate [Ventolin Hfa] 2 puff IH Q6H PRN PRN Reason: Shortness Of Breath Trazodone HCl 100 mg PO HS Atorvastatin [Lipitor] 40 mg PO HS Duloxetine HCl [Cymbalta] 60 mg PO DAILY Lubiprostone [Amitiza] 24 mcg PO BID OxyCODONE Immed Rel [Roxicodone 10 MG] 10 mg PO Q6H PRN PRN Reason: Pain Tamsulosin [Flomax] 0.4 mg PO DAILY Losartan Potassium [Cozaar] 100 mg PO DAILY 30 Days #30 tablet NIFEdipine XL (24 HR) [Procardia XL] 60 mg PO DAILY 30 Days #30 tab.er.24 Metoprolol Succinate [Toprol Xl] 25 mg PO DAILY 30 Days #30 tab.er.24h Home Medications: Aspirin [Lo-Dose Aspirin EC] 81 mg PO DAILY 09/18/16 [History] Clopidogrel [Plavix] 75 mg PO DAILY 09/18/16 [History] Albuterol Sulfate [Ventolin Hfa] 2 puff IH Q6H PRN 06/17/18 [History] Atorvastatin [Lipitor] 40 mg PO HS 06/17/18 [History] Loratadine [Allergy Relief] 10 mg PO DAILY 06/17/18 [History] Multivitamin/Iron/Folic Acid [Centrum Complete Multivit Tab] 1 each PO DAILY 06/17/18 [History] Nitroglycerin [Nitrostat] 0.4 mg SL DAILY PRN 06/17/18 [History] Omeprazole [PriLOSEC] 20 mg PO DAILY 06/17/18 [History] Trazodone HCl 100 mg PO HS 06/17/18 [History] Duloxetine HCl [Cymbalta] 60 mg PO DAILY 12/18/18 [History] Lubiprostone [Amitiza] 24 mcg PO BID 12/18/18 [History] OxyCODONE Immed Rel [Roxicodone 10 MG] 10 mg PO Q6H PRN 12/18/18 [History] Tamsulosin [Flomax] 0.4 mg PO DAILY 12/18/18 [History] Losartan Potassium [Cozaar] 100 mg PO DAILY 30 Days #30 tablet 12/19/18 [Rx] Metoprolol Succinate [Toprol Xl] 25 mg PO DAILY 30 Days #30 tab.er.24h 12/19/18 [Rx] NIFEdipine XL (24 HR) [Procardia XL] 60 mg PO DAILY 30 Days #30 tab.er.24 12/19/18 [Rx] Nicotine Patch [Nicoderm] 14 mg TD DAILY 30 Days #30 patch.td24 12/19/18 [Rx] hydrALAZINE [HydrALAZINE] 25 mg PO Q8HR 30 Days #90 tablet 12/19/18 [Rx] Allergies/Adverse Reactions: Allergy/AdvReac Type Severity Reaction Status Date / Time No Known Allergies Allergy Verified 12/18/18 14:56 Date of admission: 12/18/18 02:12 Primary care physician: Elin Mustafa CNP Consults: 12/17/18 20:21 Consult to Nephrology [CONS] Stat Consulting Provider: [facility] [place]/KIRTI/PONCE/MICHEL Reason for Consult: uncontrolled HTN w/ renal stenosis Time Notified: 20:22 Call Completed: No 12/17/18 23:33 Consult to Magnetic Grinder Operator [CONS] Routine Reason for SW Consult: Feels unable to manage medications and finances at home alone - Constitutional Vitals: Temp Pulse Resp BP Pulse Ox 97.7 F 64 16 133/89 99 12/19/18 12:31 12/19/18 12:31 12/19/18 12:31 12/19/18 12:31 12/19/18 12:31 General appearance: Present: cooperative, A&O X 3, pleasant, answers questions appropriately Exam: Vitals: Reviewed General: Alert and oriented x4. In no distress Cardiovascular: RRR, normal S1 & S2, no rubs, murmurs or gallops. Lungs: CTA b/l, no wheezes or crackles. Abdomen: Soft, non-tender, no rigidity. Extremities: No deformity, no edema or tenderness, no joint swelling or clubbing. Neurological: No focal neurological deficits Rest of the physical exam is non contributory - Patient Status Disposition: Home, Self-Care Condition: Good Functional capacity at discharge: independent ambulation Overall status at discharge: patient is back to baseline - Discharge Instructions Follow Up With: Elin Mustafa CNP [Primary Care Provider] - - Diet and Activity Activity: resume usual activities as tolerated Diet: low salt diet
[2018-12-19 14:50] LABS: Basophils # 0.1 K/mcL (0.0-0.2); Basophils % 0.8 %; Eosinophils # 0.2 K/mcL (0.0-0.6); Eosinophils % 2.3 %; Hemoglobin 12.3 g/dL (12.9-16.9); Immature Granulocytes % 0.3 % (0-4); Lymphocytes # 2.6 K/mcL (0.6-4.6); Lymphocytes % 29.5 %; Mean Corpuscular HGB Conc 33.2 g/dL (31.6-35.5); Mean Corpuscular Hemoglobin 31.3 pg (28.0-33.3); Mean Corpuscular Volume 94.1 fL (83.0-100.0); Mean Platelet Volume 9.7 fL (9.4-12.4); Monocytes # 0.6 K/mcL (0.0-1.3); Monocytes % 6.5 %; Neutrophils # 5.4 K/mcL (1.6-8.9); Platelet Count 345 K/mcL (140-400); Red Blood Count 3.93 M/mcL (4.19-5.50); Red Cell Distribution Width 13.2 % (11.5-14.5); Segmented Neutrophils % 60.6 %; White Blood Count 8.9 K/mcL (4.3-11.1)
--- NOTE | 2018-12-19 15:02 | Nephrology Progress Note ---
Date of Encounter: 12/19/18 Time of Encounter: 14:59 - Assessment and Plan (1) Hypertensive urgency Current Visit: Yes Status: Acute Is a patient of Dr. Guerra in the office for HTN. [facility] f/u scheduled for 01/26/19. Blood pressure cuff purchased at outpatient pharmacy, encouraged to bring BP log to next appointment with Dr. Guerra. (2) Chest pain Current Visit: Yes Status: Acute Resolved. Qualifiers: Chest pain type: precordial pain Qualified Code(s): R07.2 - Precordial pain (3) Renal artery stenosis Current Visit: Yes Status: Chronic Outpatient follow up. Subjective Principal diagnosis: chest pain Interval history: Pt seen and examined. Denies chest pain or shortness of breath. Denies nausea, vomiting, diarrhea. Overall feeling much better, is ready to go home. Objective - Vital Signs Vital signs: Vital Signs Temp Pulse Resp BP Pulse Ox 12/19/18 12:31 97.7 F 64 16 133/89 99 12/19/18 12:00 60 12/19/18 10:53 97.7 F 63 18 142/94 100 12/19/18 08:44 59 12/19/18 06:59 97.6 F 56 18 179/112 99 12/19/18 04:34 98.0 F 81 18 179/105 99 12/19/18 00:22 97.8 F 73 17 171/96 98 12/18/18 19:34 98.7 F 72 16 153/94 97 12/18/18 18:00 98.2 F 72 18 133/84 99 12/18/18 17:30 98.2 F 76 18 147/85 100 12/18/18 17:00 98.2 F 67 18 136/82 96 12/18/18 16:30 98.2 F 68 18 150/86 97 12/18/18 16:00 98.2 F 83 18 149/78 98 12/18/18 15:58 98.2 F 73 18 137/79 96 12/18/18 15:35 98.4 F 70 18 137/79 97 12/18/18 15:30 98.2 F 70 18 137/79 97 12/18/18 15:05 98.4 F 74 18 136/89 98 12/18/18 15:00 98.4 F 74 18 136/89 98 Intake and Output 12/18/18 12/19/18 12/19/18 23:59 07:59 15:59 Intake Total 340 / 1140 450 / 1390 940 / 1390 Output Total 275 / 2850 550 / 550 Balance 65 / -1710 -100 / 840 940 / 840 Intake: IV Fluids 100 / 600 Cardene 20 MG In 0.9 % Sodium 100 / 600 Chloride 192 ML @ 5 MG/HR 50 mls/hr IVC .Q4H MANJEET Rx#: [id number] Oral 240 / 340 450 / 1390 940 / 1390 Output: Urine 275 / 2850 550 / 550 Other: Meal Lunch Percent of Meal Consumed 100% Weight 75.3 kg Patient Weight 12/19/18 23:59 Weight 75.3 kg - General Appearance General appearance: Present: well-developed, well-nourished EENT: Present: ATNC, hearing intact, vision intact Neck: Present: supple Respiratory: Present: clear Cardiology: Present: no edema, normal S1, normal S2 Gastrointestinal: Present: normoactive bowel sounds, no tenderness, no guarding Integumentary: Present: no rash, warm and dry Neurologic: Present: alert and oriented x3 Musculoskeletal: Present: no deformities, no erythema Psychiatric: Present: mood/affect appropriate, cooperative - Lab 12/18/18 05:13 12/18/18 05:13 Consult Discharge Plan - Plan Instructions: Metoprolol (By mouth), Nifedipine (By mouth), Nicotine (Absorbed through the skin), Hydralazine (By mouth), Losartan (By mouth), Heart Healthy Diet (DC), Hypertensive Crisis (DC) Referrals: Elin Mustafa CNP [Primary Care Provider] - 12/27/18 1:45 pm Prescriptions: Losartan Potassium [Cozaar] 100 mg PO DAILY 30 Days #30 tablet hydrALAZINE [HydrALAZINE] 25 mg PO Q8HR 30 Days #90 tablet Nicotine Patch [Nicoderm] 14 mg TD DAILY 30 Days #30 patch.td24 NIFEdipine XL (24 HR) [Procardia XL] 60 mg PO DAILY 30 Days #30 tab.er.24 Metoprolol Succinate [Toprol Xl] 25 mg PO DAILY 30 Days #30 tab.er.24h
[2018-12-19 15:13] LABS: Calcium 9.2 mg/dL (8.6-10.3)
== END 2018-12-19 16:14 | disposition home or self-care (01) | DRG 305 ==
LOC: EMEROOARM 17:39 → ICNU 17:39 → 2NNU 12-18 12:11
PROVIDERS: ADMIT Family Medicine; ATTEND Family Medicine